=== PATIENT | female | born 1955 | race American Indian/Alaskan Native ===

== ENCOUNTER 2017-01-19 06:54 | Emergency (ER) | payer SELFPAY ==
[2017-01-19 07:13] VITALS: BP 141/95
--- NOTE | 2017-01-19 08:06 | Emergency Department Report ---
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 She said his bleed and and she was brought to the emergency room by ambulance. No medication given. Worse with movement better with resting. Pain is 210 at present and feel achy. Denies any numbness or tingling to extremities. Denies any nausea or vomiting. -: This morning Extremity Location: Left: Forearm (laceration with pain) Place: work Patient Tetanus UTD: No Context: accidental Associated Symptoms: pain. denies: loss of feeling/numbness, suspect foreign body present, unable to move injured part, weakness followed by dizziness, nausea/vomiting, fever Treatments Prior to Arrival: bandage - Related Data Previous Rx's Medication Instructions Recorded Last Taken Type Carvedilol [Coreg] 3.125 mg PO BID #28 tablet 08/23/13 Unknown Rx Lisinopril [Zestril] 40 mg PO QDAY #14 tablet 08/23/13 Unknown Rx methOCARBAMOL [Robaxin] 500 mg PO TID PRN #15 tablet 08/23/13 Unknown Rx traMADol [Ultram] 50 mg PO Q6HR PRN #20 tablet 08/23/13 Unknown Rx Cephalexin [Keflex] 500 mg PO Q8HR #15 cap 01/19/17 Unknown Rx Ibuprofen [Motrin] 600 mg PO Q8H PRN #15 tablet 01/19/17 Unknown Rx Allergies Allergy/AdvReac Type Severity Reaction Status Date / Time No Known Allergies Allergy Unverified 08/23/13 11:44 ED Review of Systems ROS: Stated complaint: LAC TO LT FOREARM Other details as noted in HPI Comment: All other systems reviewed and negative Constitutional: no symptoms reported Respiratory: no symptoms reported Cardiovascular: denies: chest pain, palpitations, dyspnea on exertion, edema, syncope Gastrointestinal: denies: nausea, vomiting Musculoskeletal: arthralgia. denies: joint swelling, myalgia Skin: other (Laceration to left forearm) Neurological: denies: headache, numbness, paresthesias ED Past Medical Hx - Past Medical History Previous Medical History?: Yes Hx Hypertension: Yes Additional medical history: on correg for high heart rate - Surgical History Past Surgical History?: No - Family History Family history: hypertension - Social History Smoking Status: Never Smoker Substance Use Type: None - Medications Home Medications: Home Medications Medication Instructions Recorded Confirmed Last Taken Type Carvedilol [Coreg] 3.125 mg PO BID #28 tablet 08/23/13 Unknown Rx Lisinopril [Zestril] 40 mg PO QDAY #14 tablet 08/23/13 Unknown Rx methOCARBAMOL [Robaxin] 500 mg PO TID PRN #15 tablet 08/23/13 Unknown Rx traMADol [Ultram] 50 mg PO Q6HR PRN #20 tablet 08/23/13 Unknown Rx Cephalexin [Keflex] 500 mg PO Q8HR #15 cap 01/19/17 Unknown Rx Ibuprofen [Motrin] 600 mg PO Q8H PRN #15 tablet 01/19/17 Unknown Rx ED Physical Exam - General Limitations: No Limitations General appearance: alert, in no apparent distress - Head Head exam: Present: atraumatic, normocephalic, normal inspection - Eye Eye exam: Present: normal appearance, PERRL, EOMI Pupils: Present: normal accommodation - ENT ENT exam: Present: normal exam, normal orophraynx - Neck Neck exam: Present: normal inspection, full ROM. Absent: tenderness, meningismus, lymphadenopathy - Respiratory Respiratory exam: Present: normal lung sounds bilaterally. Absent: respiratory distress, chest wall tenderness - Cardiovascular Cardiovascular Exam: Present: regular rate, normal rhythm, normal heart sounds. Absent: systolic murmur, diastolic murmur - Extremities Exam Extremities exam: Present: normal inspection, full ROM, tenderness (tender to palpate 2 laceration left forearm.), normal capillary refill, other (capillary refill less than 3 seconds all extremities, +2 pulses to all extremities, no neurovascular compromise to her extremities. No clubbing cyanosis or edema to extremities. No signs of tendon injury. [place] for range of motion to extremities.). Absent: pedal edema, joint swelling, calf tenderness - Back Exam Back exam: Present: normal inspection, full ROM. Absent: tenderness - Neurological Exam Neurological exam: Present: alert, oriented X3, normal gait, reflexes normal. Absent: motor sensory deficit - Psychiatric Psychiatric exam: Present: normal affect, normal mood - Skin Skin exam: Present: warm, dry, normal color, other (laceration to left FA approximately 2 cm) - Expanded Skin Exam Expanded Type of lesion: Present: laceration (Left Forearm) Distribution of rash: LUE (left forearm) Description of rash: Present: size (2 cm), tenderness. Absent: erythematous, swelling, purpuic ED Course Vital Signs 01/19/17 07:13 Temperature 98.2 F Pulse Rate 70 Respiratory 18 Rate Blood Pressure 141/95 [Right] O2 Sat by Pulse 98 Oximetry - Reevaluation(s) Reevaluation #1: 01/19/17 09:45 given an [place] 5/325 2 tablets emergency room but she refused. She was also given tetanus vaccination booster 0.5 mouth to update tetanus. She was given her first dose of Keflex 500 mg in the emergency room. - Laceration /Wound Repair Left Arm Wound Location: upper extremity (left forearm) Wound Length (cm): 2 Wound's Depth, Shape: superficial, linear Wound Explored: no foreign body removed Irrigated w/ Saline (ccs): 300 Betadine Prep?: Yes Anesthesia: 1% Lidocaine Volume Anesthetic (ccs): 1 Wound Debrided: moderate Wound Repaired With: sutures Suture Size/Type: 3:0 ([place]) Number of Sutures: 7 Layer Closure?: No Sterile Dressing Applied?: Yes Progress: Patient tolerated procedure well. Laceration to left forearm repair under sterile procedure. She was given Keflex by mouth and Bootrix in emergency room ED Medical Decision Making - Radiology Data Radiology results: report reviewed - Medical Decision Making MDM: This is a 61-year-old female well-nourished well-developed in no acute distress. Patient here reports that he accidentally cut his left wrist this morning with sharp object. Neurovascular check is intact. Patient with full 2 + bounding pulse to bilateral radial /ulnar area. Patient refused pain medication in emergency room . Laceration to left wrist repaired under sterile procedure please refer to procedure note for detail. She has given boostrix vaccine 0.5 mL IM without any adverse reaction. She was also given his first dose of Keflex 500 mg in emergency room to prevent infection. I discussed with patient that she will need to follow-up with his primary care physician and to return to emergency room in 7-10 days to have stitches removed. Patient was voiced understanding of discharge instruction and treatment plan and released from the emergency room with prescription for Motrin and Keflex. Critical care attestation.: If time is entered above; I have spent that time in minutes in the direct care of this critically ill patient, excluding procedure time. ED Disposition Clinical Impression: Left forearm pain Laceration of left forearm without complication Qualifiers: Encounter type: initial encounter Qualified Code(s): S51.812A - Laceration without foreign body of left forearm, initial encounter Injury of forearm, left Qualifiers: Encounter type: initial encounter Qualified Code(s): S59.912A - Unspecified injury of left forearm, initial encounter Disposition: TO HOME OR SELFCARE Is pt being admited?: No Does the pt Need Aspirin: No Condition: Stable Instructions: Suture Care (ED), Laceration (ED), Arthralgia (ED) Additional Instructions: Please keep affected area clean and dry Return to the emergency room in 7-10 days to have sutures repair do not participate in any vigorous activity to maintain integrity of suture line. Take Antibiotic as prescribed Prescriptions: Cephalexin [Keflex] 500 mg PO Q8HR #15 cap Ibuprofen [Motrin] 600 mg PO Q8H PRN #15 tablet PRN Reason: Pain Referrals: PRIMARY CARE,MD [Primary Care Provider] - 3-5 Days return to, ED [Other] - 7-10 days (Return to emergency room in 7-10 days to have stitches removed) Forms: Accompanied Note, Work/School Release Form(ED)
[2017-01-19] MEDS ORDERED: XYLOCAINE 1% MPF 5 mL INFILTRATI ONE (08:07)
[2017-01-19] MEDS ORDERED: NACL 0.9% IR ONE (08:07)
[2017-01-19] MEDS ORDERED: NORCO 5/325 PO ONE (08:07)
[2017-01-19] MEDS ORDERED: BOOSTRIX IM ONE (08:07)
[2017-01-19] MEDS ORDERED: KEFLEX PO ONE (08:08)
== END 2017-01-19 10:05 | disposition home or self-care (01) ==
LOC: ED 06:54
DX: S51.812A Laceration without foreign body of left forearm, initial encounter (principal); I10 Essential (primary) hypertension; W45.8XXA Other foreign body or object entering through skin, initial encounter; Y93.89 Activity, other specified; Y92.89 Other specified places as the place of occurrence of the external cause; Y99.8 Other external cause status
CPT/HCPCS: 90471; 90715; 99283

== ENCOUNTER 2017-02-06 14:15 | Emergency (ER) | payer SELFPAY ==
[2017-02-06 14:40] VITALS: BP 158/97
--- NOTE | 2017-02-06 14:59 | Emergency Department Report ---
Suture/Staple Removal - HPI Chief Complaint: Laceration/Recheck/Suture Stated Complaint: STUT REMOVAL Time Seen by Provider: 02/06/17 14:51 When Sutures or Holder Placed: 11-14 Days Ago Wound Location: left forearm ED Review of Systems ROS: Stated complaint: STUT REMOVAL Other details as noted in HPI Comment: All other systems reviewed and negative Constitutional: no symptoms reported. denies: chills, diaphoresis, fever, malaise, weakness Skin: other (4 cm healed laceration) ED Past Medical Hx - Past Medical History Previous Medical History?: Yes Hx Hypertension: Yes Additional medical history: on correg for high heart rate - Surgical History Past Surgical History?: Yes - Social History Smoking Status: Never Smoker Substance Use Type: Alcohol - Medications Home Medications: Home Medications Medication Instructions Recorded Confirmed Last Taken Type Carvedilol [Coreg] 3.125 mg PO BID #28 tablet 08/23/13 Unknown Rx Lisinopril [Zestril] 40 mg PO QDAY #14 tablet 08/23/13 Unknown Rx methOCARBAMOL [Robaxin] 500 mg PO TID PRN #15 tablet 08/23/13 Unknown Rx traMADol [Ultram] 50 mg PO Q6HR PRN #20 tablet 08/23/13 Unknown Rx Cephalexin [Keflex] 500 mg PO Q8HR #15 cap 01/19/17 Unknown Rx Ibuprofen [Motrin] 600 mg PO Q8H PRN #15 tablet 01/19/17 Unknown Rx Suture Removal Exam - Exam General: Vital signs noted. No distress. Alert and acting appropriately. Wound: No Pathologic Erythema, No Tenderness, No Drainage, No Pus, No Wound Dehiscence Other Systems: All other systems reviewed and are unremarkable. ED Course Vital Signs 02/06/17 14:38 Temperature 98.5 F Pulse Rate 64 Respiratory 16 Rate Blood Pressure 158/97 O2 Sat by Pulse 97 Oximetry ED Recheck MDM - Differential Diagnosis Wound Recheck, Cellultitis Recheck, Suture/Staple Removal, Wound Dehiscence - Medical Decision Making patient was in NAD, patient had a 4 cm healed laceration on the flexor surface of the left forearm. No drainage, no erythema, no wound dehiscence. 1 running stitch was removed from the left forearm. Critical care attestation.: If time is entered above; I have spent that time in minutes in the direct care of this critically ill patient, excluding procedure time. ED Disposition Clinical Impression: Visit for suture removal Disposition: DC-01 TO HOME OR SELFCARE Is pt being admited?: No Does the pt Need Aspirin: No Condition: Good Instructions: Suture Removal (ED) Time of Disposition: 14:57
== END 2017-02-06 15:09 | disposition home or self-care (01) ==
LOC: ED 14:15
DX: Z48.02 Encounter for removal of sutures (principal)